=== PATIENT | female | born 1980 | race African-American/Black ===

== ENCOUNTER 2019-12-09 05:58 | Emergency (ER) | payer OTHER ==
[~2019-12-09] VITALS: Ht 157.5 cm; Wt 106.8 kg
[~2019-12-09 05:58] MED LIST: DIPH25CA85 PO; ETON68IM; NOCURR
[2019-12-09] MEDS ORDERED: PROZ10 PO (06:15)
[2019-12-09 07:31] VITALS: BP 106/68
== END 2019-12-09 08:58 | disposition home or self-care (01) ==
LOC: EMS 05:58
DX: S83.92XA Sprain of unspecified site of left knee, initial encounter (principal); F17.210 Nicotine dependence, cigarettes, uncomplicated; W10.9XXA Fall (on) (from) unspecified stairs and steps, initial encounter; Y93.89 Activity, other specified; Y92.89 Other specified places as the place of occurrence of the external cause; Y99.8 Other external cause status

== ENCOUNTER 2020-04-14 05:20 | Emergency (ER) | payer OTHER ==
[~2020-04-14] VITALS: Ht 157.5 cm; Wt 109.5 kg
[~2020-04-14 05:20] MED LIST changes: -DIPH25CA85 PO; -ETON68IM; -NOCURR; +PROZ10 PO
[2020-04-14] MEDS ORDERED: HYDROCODONE/ACETAMINOPHEN 5-325 MG TABLET PO ONE (06:15)
[2020-04-14 07:30] VITALS: BP 124/82
== END 2020-04-14 07:50 | disposition home or self-care (01) ==
LOC: EMS 05:20
DX: S89.91XA Unspecified injury of right lower leg, initial encounter (principal); F17.210 Nicotine dependence, cigarettes, uncomplicated; X50.1XXA Overexertion from prolonged static or awkward postures, initial encounter; Y93.89 Activity, other specified; Y92.89 Other specified places as the place of occurrence of the external cause; Y99.8 Other external cause status